=== PATIENT | female | born 1990 | race Caucasian/White ===

== ENCOUNTER → 2016-08-04 | Outpatient (CLI) | payer OTHER ==
[2016-08-04 17:17] LABS: ESTRADIOL < 19.0 PG/ML; PROGESTERONE 17.4 NG/ML
== END ==
LOC: M LRY 11:02
PROVIDERS: ATTEND Obstetrics & Gynecology Reproductive Endocrinology
DX: Z31.49 Encounter for other procreative investigation and testing (principal)

== ENCOUNTER → 2016-08-11 | Outpatient (CLI) | payer OTHER ==
[2016-08-11 12:24] LABS: HCG, SERUM QUANTITATIVE < 1.0 MIU/ML
[2016-08-11 12:27] LABS: PROGESTERONE 4.8 NG/ML
== END ==
LOC: M LRY 09:16
PROVIDERS: ATTEND Obstetrics & Gynecology Reproductive Endocrinology
DX: Z32.00 Encounter for pregnancy test, result unknown (principal)

== ENCOUNTER → 2016-08-17 | Outpatient (CLI) | payer OTHER ==
[~2016-08-17] MED LIST: ENDO100S; METF500T4; NOVA1000; PROG-34 XX
--- NOTE | 2016-08-17 14:53 | REP ---
Clinical: Infertility. Technique: Transvaginal pelvic ultrasound examination. Findings: Normal anteverted uterus measures 7.1 x 3.1 x 3.7 cm. Endometrial complex measures 2.6 mm thickness. No discrete uterine or endometrial abnormalities are appreciated. No pelvic fluid or adnexal mass lesion identified. Right ovary measures 5.0 x 2.9 x 3.8 cm with approximately 4 subcentimeter follicles. Left ovary measures 4.1 x 3.6 x 2.4 cm with approximately 11 subcentimeter follicles. Impression: Infertility study with bilateral sub centimeter follicles noted. Signed by Rocky Iverson MD 08/17/2016 02:44 P
== END | disposition home or self-care (01) ==
LOC: M LAB 14:11
PROVIDERS: ATTEND Obstetrics & Gynecology Reproductive Endocrinology
DX: N85.4 Malposition of uterus (principal); N88.8 Other specified noninflammatory disorders of cervix uteri

== ENCOUNTER → 2016-08-17 | Outpatient (CLI) | payer OTHER ==
[2016-08-17 12:42] LABS: HCG, SERUM QUANTITATIVE < 1.0 MIU/ML
[2016-08-17 12:52] LABS: LUTEINIZING HORMONE 4.6 mIU/mL; PROGESTERONE 0.5 NG/ML
[2016-08-17 12:53] LABS: ESTRADIOL 19.7 PG/ML; FOLLICLE STIMULATING HORMONE 7.3 mIU/mL
== END | disposition home or self-care (01) ==
LOC: M LRY 09:45
PROVIDERS: ATTEND Obstetrics & Gynecology Reproductive Endocrinology
DX: N85.4 Malposition of uterus (principal); N88.8 Other specified noninflammatory disorders of cervix uteri

== ENCOUNTER → 2016-08-24 | Outpatient (CLI) | payer OTHER ==
--- NOTE | 2016-08-24 09:49 | REP ---
TRANSVAGINAL PELVIC SONOGRAPHY: HISTORY: Infertility. FINDINGS: Transvaginal scanning is performed. Uterine dimensions are normal at 8.2 x 2.6 x 3.5 cm. Endometrial echo 0.4 cm in thickness. No free fluid is seen. No focal uterine mass is seen. The overall dimensions of the right ovary today are 4.3 x 3.0 x 3.1 cm. There are eight follicles in the right ovary measuring over a centimeter as follows: 1.1 x 0.9, 1.4 x 0.6, 1.0 x 0.3, 1.2 x 0.5, 1.1 x 0.8, 1.5 x 1.1, 1.1 x 0.7, and 1.2 x 0.9 cm. In addition there approximate 24 follicles ranging in size from 0.2-0.9 cm in the right ovary. The overall dimensions of the left ovary are 3.9 x 3.5 x 4.7 cm. There are 10 follicles in the right ovary measuring over a centimeter: 1.4 x 0.7, 1.2 x 0.6, 1.1 x 0.7, 1.1 x 0.7, 1.0 x 0.6, 1.1 x 0.4, 1.1 x 0.9, 1.0 x 0.6, 1.2 x 0.6, and 1.2 x 0.8 cm. In addition there are numerous, approximate 36, follicles in the left ovary ranging in size from 0.2-0.9 cm. There is a 1.5 x 1.2 x 0.8 cm septated follicle cyst in the left ovary as well. Signed by Warren Yanez MD 08/24/2016 10:09 A
[2016-08-24 12:19] LABS: ESTRADIOL 24.6 PG/ML; PROGESTERONE 0.7 NG/ML
== END ==
LOC: M RAD 07:35
PROVIDERS: ATTEND Obstetrics & Gynecology Reproductive Endocrinology
DX: E28.2 Polycystic ovarian syndrome (principal)

== ENCOUNTER → 2016-08-26 | Outpatient (CLI) | payer OTHER ==
--- NOTE | 2016-08-26 08:49 | REP ---
Clinical: Infertility. Technique: Transvaginal ultrasound examination. Findings: Anteverted uterus measures 7.5 x 3.0 x 4.2 cm. The endometrial complex measures 6.4 mm thickness. No discrete abnormalities appreciated. No free fluid noted. Right ovary measures 4.8 x 3.4 x 4.0 cm with three follicles measuring between 10 and 11 mm along with greater than 20 sub centimeter follicles. Left ovary measures 4.9 x 2.8 x 3.6 cm with greater than 30 sub centimeter follicles. Impression: Predominately sub centimeter follicles noted bilaterally. Normal appearance to the uterus. No free fluid. Signed by Rocky Iverson MD 08/26/2016 08:41 A
== END ==
LOC: M RAD 06:44
PROVIDERS: ATTEND Obstetrics & Gynecology Reproductive Endocrinology
DX: E28.2 Polycystic ovarian syndrome (principal)

== ENCOUNTER → 2016-08-26 | Outpatient (CLI) | payer OTHER ==
[2016-08-26 11:53] LABS: PROGESTERONE 0.4 NG/ML
[2016-08-26 11:54] LABS: ESTRADIOL 50.6 PG/ML; LUTEINIZING HORMONE 8.3 mIU/mL
== END ==
LOC: M LAB 06:59
PROVIDERS: ATTEND Obstetrics & Gynecology Reproductive Endocrinology
DX: E28.2 Polycystic ovarian syndrome (principal)

== ENCOUNTER → 2016-08-29 | Outpatient (CLI) | payer OTHER ==
--- NOTE | 2016-08-29 08:51 | REP ---
TRANSVAGINAL PELVIC ULTRASOUND, FOLLICLE STUDY: Real-time sonographic evaluation of the pelvis performed utilizing transvaginal probe. The uterus measures 7.4 x 2.7 x 4.2 cm. Endometrial thickness is 4 mm. Right ovary measures 4.6 x 3.2 x 2.8 cm. There are two dominant follicles measuring 12 x 7 and 13 x 9 mm. Approximately 20 other follicles range in size between 2 and 9 mm. Left ovary measures 4.6 x 3.6 x 3.2 cm. Two dominant follicles are seen measuring 12 x 7 and 11 x 9 mm. Approximately 30 other subcentimeter follicles are seen ranging between 2 and 9 mm in diameter. Signed by Stevan Belcher MD 08/29/2016 05:06 P
[2016-08-29 10:06] LABS: LUTEINIZING HORMONE 12.2 mIU/mL; PROGESTERONE 0.4 NG/ML
[2016-08-29 10:07] LABS: ESTRADIOL 56.1 PG/ML
== END ==
LOC: M RAD 07:05
PROVIDERS: ATTEND Obstetrics & Gynecology Reproductive Endocrinology
DX: E28.2 Polycystic ovarian syndrome (principal)

== ENCOUNTER → 2016-09-05 | Outpatient (CLI) | payer OTHER ==
--- NOTE | 2016-09-05 09:03 | REP ---
Transvaginal pelvic ultrasound for follicle analysis: Right ovary: There is one follicle greater than 10 mm measuring up to 13.6 mm. In addition there are approximately 35 follicles in the 2.2 - 9.3 mm range. Right ovary is upper normal size measuring 4.8 x 3.1 x 3.3 cm. Left ovary : There is one follicle greater than 10 mm measuring up to 12.5 mm. Additionally, there are 30 follicles in the 2.6 - 9.8 mm range. Left ovary is normal size measuring 4.8 x 3.7 x 3.6 cm. The uterus is anteverted and normal size measuring 7.5 x 2.7 x 4.6 cm. The endometrium is not thickened measuring 5.5 mm. Endometrium has a trilaminar appearance. Signed by Stevan Terrazas MD 09/05/2016 08:54 A
[2016-09-05 10:21] LABS: LUTEINIZING HORMONE 11.6 mIU/mL; PROGESTERONE 0.5 NG/ML
[2016-09-05 10:22] LABS: ESTRADIOL 35.9 PG/ML
== END ==
LOC: M RAD 08:01
PROVIDERS: ATTEND Obstetrics & Gynecology Reproductive Endocrinology
DX: E28.2 Polycystic ovarian syndrome (principal); N85.4 Malposition of uterus

== ENCOUNTER → 2016-09-08 | Outpatient (CLI) | payer OTHER ==
--- NOTE | 2016-09-08 07:52 | REP ---
Pelvic sonography: Transvaginal study. History: Infertility. Findings: Uterine dimensions are normal at 7.2 x 2.7 x 4.4 cm. Endometrial stripe is 0.7 centimeters in thickness. No focal uterine mass is seen. No free fluid is noted. The right ovary measures 3.7 x 3.6 x 3.6 cm. It contains two follicles over a centimeter measuring 1.5 x 1.8 and 1.0 x 0.8 cm. In addition, the right ovary contains 16 follicles ranging in size and 0.4-0.9 cm. The left ovary measures 4.9 x 3.9 x 3.0 cm. It contains three follicles over a centimeter measured as follows: 1.2 x 0.9, 2.1 x 1.7, and 1.2 x 0.9 cm. In addition there are 20 follicles under a centimeter in the left ovary. Impression: Ovarian follicle study as above. Signed by Warren Yanez MD 09/08/2016 07:44 A
[2016-09-08 09:47] LABS: LUTEINIZING HORMONE 50.1 mIU/mL; PROGESTERONE 0.9 NG/ML
[2016-09-08 09:48] LABS: ESTRADIOL 70.5 PG/ML
== END ==
LOC: M RAD 07:02
PROVIDERS: ATTEND Obstetrics & Gynecology Reproductive Endocrinology
DX: N97.9 Female infertility, unspecified (principal)

== ENCOUNTER → 2016-09-16 | Outpatient (CLI) | payer OTHER ==
[2016-09-16 10:28] LABS: ESTRADIOL 53.5 PG/ML; PROGESTERONE 32.3 NG/ML
== END ==
LOC: M LRY 08:14
PROVIDERS: ATTEND Obstetrics & Gynecology Reproductive Endocrinology
DX: Z31.49 Encounter for other procreative investigation and testing (principal)

== ENCOUNTER → 2016-09-26 | Outpatient (REF) | payer OTHER ==
[2016-09-26 15:20] LABS: HCG, SERUM QUANTITATIVE < 1.0 MIU/ML
[2016-09-26 15:25] LABS: PROGESTERONE 0.7 NG/ML
== END ==
LOC: M LRY 14:39
PROVIDERS: ATTEND Obstetrics & Gynecology Reproductive Endocrinology
DX: Z32.00 Encounter for pregnancy test, result unknown (principal)

== ENCOUNTER → 2016-09-30 | Outpatient (CLI) | payer OTHER ==
[2016-09-30 10:35] LABS: HCG, SERUM QUANTITATIVE < 1.0 MIU/ML
[2016-09-30 10:37] LABS: LUTEINIZING HORMONE 7.6 mIU/mL; PROGESTERONE 0.4 NG/ML
[2016-09-30 10:38] LABS: ESTRADIOL 27.1 PG/ML
[2016-09-30 10:39] LABS: FOLLICLE STIMULATING HORMONE 9.5 mIU/mL
--- NOTE | 2016-09-30 10:51 | REP ---
TRANSVAGINAL PELVIC ULTRASOUND, FOLLICLE STUDY: Transvaginal pelvic ultrasound performed. Uterus measures 7.7 x 3.3 x 4.3 cm. Endometrial stripe measures 4 mm. There is no endometrial fluid collection or free fluid. Right ovary measures 4.7 x 3.4 x 3.0 cm. There is a dominant follicle in the right ovary 11 x 9 mm with multiple other subcentimeter follicles present. Left ovary measures 3.7 x 3.3 x 3.5 cm. There are approximately 7 dominant follicles present, the largest measuring 11 x 3 and 10 x 9 mm. Multiple other subcentimeter follicles are seen in the left ovary. Signed by Stevan Belcher MD 09/30/2016 05:07 P
== END ==
LOC: M LAB 09:01 → M RAD 09:01
PROVIDERS: ATTEND Obstetrics & Gynecology Reproductive Endocrinology
DX: E28.9 Ovarian dysfunction, unspecified (principal)

== ENCOUNTER → 2016-10-07 | Outpatient (CLI) | payer OTHER ==
--- NOTE | 2016-10-07 09:30 | REP ---
Pelvic ultrasound for follicle analysis: Studies performed with endovaginal imaging. Right ovary: Right ovary is normal size measuring 4.2 x 3.6 x 3.4 cm. There are four follicles greater than 10 mm, the largest measuring up to 12 ml. In addition there are approximately 40 follicles measuring 2 - 9 mm. Left ovary: Left ovary is normal size measuring 3.9 x 3.2 x 3.17 inches. There are four follicles greater than 10 mm, the largest measuring up to 12 mm. Additionally, there are 48 follicles measuring 3 - 9 mm. In addition, there is a dominant cyst measuring 2.5 centimeters with a daughter cyst, versus two adjacent cysts. The uterus is anteverted and normal size measuring 7.2 x 2.4 x 4.0 cm. The endometrium inch 3.8 mm thickness. There is no free fluid in the pelvis. Signed by Stevan Terrazas MD 10/07/2016 09:22 A
[2016-10-07 11:42] LABS: PROGESTERONE 0.4 NG/ML
[2016-10-07 11:43] LABS: ESTRADIOL 73.4 PG/ML; LUTEINIZING HORMONE 9.3 mIU/mL
== END ==
LOC: M RAD 08:35 → M LAB 08:35
PROVIDERS: ATTEND Obstetrics & Gynecology Reproductive Endocrinology
DX: E28.2 Polycystic ovarian syndrome (principal); N85.4 Malposition of uterus

== ENCOUNTER → 2016-10-10 | Outpatient (CLI) | payer OTHER ==
--- NOTE | 2016-10-10 10:29 | REP ---
PELVIC SONOGRAPHY: HISTORY: Fertility study. FINDINGS: Transvaginal pelvic sonography is performed. Uterine dimensions today are 8.0 x 2.8 x 4.2 cm. Endometrial echoes measure 0.8 cm. There is trace of fluid in the cul-de-sac. No focal uterine mass is seen. Overall dimensions of the right ovary today are 4.5 x 3.9 x 3.4 cm. There is a 1.2 x 0.6 cm follicle in the right ovary and innumerable follicles are seen in the right ovary ranging in size from 0.2-0.9 cm. Overall dimensions of the left ovary today are 4.2 x 4.1 x 3.9 cm. There are four follicles in the left ovary measuring over a centimeter as follows: 1.0 x 0.8, 1.0 x 0.6, 1.0 x 0.3, and 1.4 x 0.2 cm. In addition there are innumerable follicles in the left ovary ranging in size from 0.2-0.9 cm. There is also a left ovarian cyst measuring 3.2 x 2.8 x 3.0 cm. IMPRESSION: Follicle study as above. 3.3 cm cyst seen left ovary in addition to follicles. Signed by Warren Yanez MD 10/10/2016 10:57 A
[2016-10-10 10:46] LABS: ESTRADIOL 75.8 PG/ML; LUTEINIZING HORMONE 49.1 mIU/mL; PROGESTERONE 2.1 NG/ML
== END ==
LOC: M LAB 08:54
PROVIDERS: ATTEND Obstetrics & Gynecology Reproductive Endocrinology
DX: E28.2 Polycystic ovarian syndrome (principal)

== ENCOUNTER 2016-10-23 00:23 | Emergency (ER) | payer OTHER ==
[~2016-10-23] VITALS: Ht 177.8 cm; Wt 127.3 kg
[2016-10-23] MEDS ORDERED: ENDO100S (00:41)
[2016-10-23] MEDS ORDERED: NOVA1000 (00:41)
[2016-10-23] MEDS ORDERED: METF500T4 (00:41)
[2016-10-23] MEDS ORDERED: PROG-34 XX (00:41)
[2016-10-23] MEDS ORDERED: KETOROLAC 60 MG/2 ML VIAL (J1885) IM ONE (01:00)
[2016-10-23 01:42] VITALS: BP 129/66
--- NOTE | 2016-10-23 02:00 | REPUSA ---
Indication: Right-sided neck swelling. Technique: Real-time ultrasound images. Findings: 3.1x2.7x2.6 cm complex fluid collection in the right aspect of the neck posterior to the thyroid lela carey Impression: Complex heterogeneous fluid collection in the right aspect of the neck posterior/deep to the thyroid.
[2016-10-23] MEDS ORDERED: ONDANSETRON 4 MG ORAL DISINTEGRATING TAB (S0181) PO ONE (02:30)
[2016-10-23] MEDS ORDERED: NORCO, ANEXSIA 5/325MG TABLET (HYDROcodone/ACETAMINOPHEN) PO ONE (02:30)
[2016-10-23 02:51] LABS: IONIZED CALCIUM 4.7 MG/DL (4.5-5.3)
[2016-10-23 02:53] LABS: BASO # 0.1 K/mm3 (0.0-0.2); BASO % 0.9 % (0.0-1.0); EOS # 0.3 K/mm3 (0.0-0.50); EOS % 2.7 % (0.0-3.0); LARGE UNSTAINED CELL # 0.1 K/mm3 (0.0-0.4); LYMPH # 3.3 K/mm3 (1.5-6.5); MEAN CORPUSCULAR HEMOGLOBIN 28.4 pg (27.0-33.0); MEAN CORPUSCULAR HGB CONC 33.5 g/dl (32.0-36.5); MEAN CORPUSCULAR VOLUME 84.9 fl (80.0-96.0); MONO # 0.6 K/mm3 (0.0-0.8); NEUTROPHILS # 7.8 K/mm3 (1.8-7.7); NEUTROPHILS % 64.4 % (36.0-66.0); PLATELET COUNT, AUTOMATED 336 k/mm3 (150-450); RED CELL DISTRIBUTION WIDTH 14.4 % (11.5-14.5); WHITE BLOOD COUNT 12.1 K/mm3 (4.0-10.0)
[2016-10-23] MEDS ORDERED: METAL LOCK LOOP XX ONE (02:55)
[2016-10-23 03:07] LABS: CONTROL LINE HCG INT CTR LINE PRESENT
[2016-10-23 03:23] LABS: ANION GAP 10 MEQ/L (8-16); BLOOD UREA NITROGEN 6 MG/DL (7-18); CALCIUM LEVEL 8.7 MG/DL (8.5-10.1); CARBON DIOXIDE LEVEL 23 MEQ/L (21-32); CHLORIDE LEVEL 110 MEQ/L (98-107); CREATININE FOR GFR 0.74 MG/DL (0.55-1.02); GLOMERULAR FILTRATION RATE > 60.0 (>60); GLUCOSE, FASTING 96 MG/DL (70-105); SODIUM LEVEL 143 MEQ/L (136-145); T UPTAKE 35 % (30-39); THYROXINE (T4) 11.9 UG/DL (4.5-12.0)
[2016-10-23] MEDS ORDERED: ISOVUE-370 76% 100ML VIAL (Q9967) As Ordered ONE (03:24)
--- NOTE | 2016-10-23 04:10 | REPUSA ---
CLINICAL HISTORY: Neck mass. TECHNIQUE: Multiple axial CT images were obtained through the neck with IV contrast material. MPR cor onal and sagittal sequences were obtained. COMMENTS: 3.1x2.7 cm cystic lesion adjacent to the lower pole of the right thyroid lobe. The cystic lesion is deep to the inferior port of the right thyroid lobe. Secondary mass effect on the adjacent aspect of the right thyroid lobe. No associated solid enhancement. Mild diffuse thyromegaly. The oropharyngeal soft tissues are normal and bilaterally symmetric. The piriform sinuses are normal. There is no supra or infraglottic laryngeal mass. The proximal trachea is normal. There is no paravertebral soft tissue mass. The salivary glands are normal. There is no deep cervical or jugular lymphadenopathy. The paravertebral soft tissue space is normal. Limited images through the posterior fossa demonstrate no evidence for tonsilar herniation. Evaluation of the visualized lung apices reveals no evidence for abnormality. There is no evidence for abnormal enhancement. IMPRESSION: Cystic lesion as described above. This may represent an eccentric/exophytic cystic nodule arising fro m the lower pole of the right thyroid lobe. Differential diagnosis includes a duplication cyst. No lymph node enlargement or solid enhancement. No secondary airway narrowing. Thank you for your kind referral of this patient.
--- NOTE | 2016-10-23 06:50 | ED PDOC ---
Post-Departure Follow-Up dr loera faxed formal report of thry us for fu Deisy Hensley MD Oct 23, 2016 06:50
--- NOTE | 2016-10-23 06:52 | ED PDOC ---
Post-Departure Follow-Up additionally ct neck also faxed to dr loera. Deisy Hensley MD Oct 23, 2016 06:52
--- NOTE | 2016-10-23 08:45 | REP ---
Clinical: Chest pain primarily at the thoracic inlet . Comparison: None . Technique: PA and lateral. Findings: The mediastinum and cardiac silhouette are normal. The lung clements are clear and without acute consolidation, effusion, or pneumothorax. The skeletal structures are intact and normal. Impression: 1. No acute cardiopulmonary process. Signed by Rocky Iverson MD 10/23/2016 08:36 A
== END 2016-10-23 06:07 | disposition home or self-care (01) ==
LOC: M ED 00:23
DX: E04.1 Nontoxic single thyroid nodule (principal); F31.9 Bipolar disorder, unspecified; F41.9 Anxiety disorder, unspecified; E28.2 Polycystic ovarian syndrome; F17.200 Nicotine dependence, unspecified, uncomplicated; Z79.899 Other long term (current) drug therapy; Z88.1 Allergy status to other antibiotic agents
CPT/HCPCS: 36415; 70491; 71020; 76536; 80048; 82330; 84436; 84443; 84479; 84703; 85025; 96372; 99283; J1885; Q9967

== ENCOUNTER → 2016-10-25 | Outpatient (CLI) | payer OTHER ==
[2016-10-25 21:01] LABS: HCG, SERUM QUANTITATIVE < 1.0 MIU/ML
[2016-10-25 21:07] LABS: PROGESTERONE 1.1 NG/ML
== END ==
LOC: M LRY 16:39
PROVIDERS: ATTEND Obstetrics & Gynecology Reproductive Endocrinology
DX: O09.00 Supervision of pregnancy with history of infertility, unspecified trimester (principal); Z36 Encounter for antenatal screening of mother; Z3A.00 Weeks of gestation of pregnancy not specified

== ENCOUNTER → 2016-10-26 | Outpatient (REF) | payer OTHER | LOC: M LAB REF 15:04 | PROVIDERS: ATTEND Otolaryngology | DX: E04.1 Nontoxic single thyroid nodule (principal) ==

== ENCOUNTER → 2017-11-19 | Outpatient (REF) | payer OTHER ==
[2017-11-19 21:09] LABS: CHLAMYDIA DNA AMPLIFICATION NEGATIVE (NEGATIVE); GC DNA AMPLIFICATION NEGATIVE (NEGATIVE)
== END ==
LOC: M SFHCLERA 15:55
DX: Z20.2 Contact with and (suspected) exposure to infections with a predominantly sexual mode of transmission (principal)

== ENCOUNTER → 2018-04-22 | Outpatient (CLI) | payer OTHER ==
[2018-04-22 19:28] LABS: BASO # 0.1 10^3/uL (0.0-0.2); EOS # 0.1 10^3/uL (0.0-0.50); EOS % 2.1 % (0.0-3.0); HEMATOCRIT 42.2 % (36.0-47.0); HEMOGLOBIN 13.7 g/dl (12.0-15.5); LYMPH % 34.2 % (24.0-44.0); MEAN CORPUSCULAR HEMOGLOBIN 30.4 pg (27.0-33.0); MEAN CORPUSCULAR HGB CONC 32.5 g/dl (32.0-36.5); MEAN CORPUSCULAR VOLUME 93.8 fl (80.0-96.0); MONO # 0.4 10^3/uL (0.0-0.8); MONO % 6.7 % (0.0-5.0); NEUTROPHILS # 3.2 10^3/uL (1.8-7.7); NEUTROPHILS % 55.8 % (36.0-66.0); PLATELET COUNT, AUTOMATED 286 10^3/uL (150-450); WHITE BLOOD COUNT 5.8 10^3/uL (4.0-10.0)
[2018-04-22 19:58] LABS: ALBUMIN 3.9 GM/DL (3.2-5.2); ALT/SGPT 22 U/L (12-78); BLOOD UREA NITROGEN 12 MG/DL (7-18); CALCIUM LEVEL 8.4 MG/DL (8.5-10.1); CARBON DIOXIDE LEVEL 26 MEQ/L (21-32); CHLORIDE LEVEL 107 MEQ/L (98-107); CHOLESTEROL LEVEL 236 MG/DL (<200); CHOLESTEROL RISK RATIO 3.323 (<5); CREATININE FOR GFR 0.71 MG/DL (0.55-1.30); GLOMERULAR FILTRATION RATE > 60.0 (>60); GLUCOSE, FASTING 82 MG/DL (70-100); HDL CHOLESTEROL 71 MG/DL (>40); LDL CHOLESTEROL 152 MG/DL (<100); NON-HDL-C 165 MG/DL; POTASSIUM SERUM 4.4 MEQ/L (3.5-5.1); SODIUM LEVEL 142 MEQ/L (136-145); TOTAL PROTEIN 6.5 GM/DL (6.4-8.2); TRIGLYCERIDES LEVEL 65 MG/DL (<150)
[2018-04-22 20:03] LABS: HEMOGLOBIN A1c 4.9 %
== END ==
LOC: M LRY 11:24
PROVIDERS: ATTEND Nurse Practitioner Psychiatric/Mental Health
DX: F31.81 Bipolar II disorder (principal); Z79.899 Other long term (current) drug therapy

== ENCOUNTER 2018-12-21 23:14 | Outpatient (CLI) | payer OTHER ==
[~2018-12-21] VITALS: Ht 177.8 cm; Wt 115.1 kg
[~2018-12-21 23:14] MED LIST changes: +METF-791; -METF500T4
[2018-12-21 23:34] VITALS: BP 131/72
--- NOTE | 2018-12-22 00:49 | REPVR ---
PROCEDURE INFORMATION: Exam: US , Transvaginal Exam date and time: 12/22/2018 12:20 AM Clinical history: 28 years old, female; Condition or disease; Lmp or gestational age (weeks): 25; Other: Incompetent cx; Other: Unk; ; Additional info: Shortened cervix, previously 1.6cm TECHNIQUE: Imaging protocol: Real-time transvaginal obstetrical ultrasound of the maternal pelvis and a first trimester with image documentation. Transvaginal imaging was used for better evaluation of the fetus and adnexa. COMPARISON: Transvaginal NON- US 10/10/2016 9:32 AM FINDINGS: MATERNAL: Cervix: The cervix measures 1.2 cm. IMPRESSION: Short cervix measuring 1.2 cm. Electronically signed by: Vasu Sol On 12/22/2018 00:48:34 AM
--- NOTE | 2018-12-22 01:30 | IPNPDOC ---
Text Note Date of Service The patient was seen on 12/22/18. NOTE Outpatient 28yo G1 CARLOS 04/20/19. Presents @ 22w6d with concerns for vaginal leakage and cramping. Hx significant for known shortened cervix, 1.6cm on 12/11/18. Currently using progesterone suppositories. Pt of WW[facility], transferring to [facility] with appt in 2 wks. Reassuring status No UC Spec exam, neg pool, neg valsalva, neg nitrazine, neg fern. Cervix with either membranes visible or mucous plug, approximately FT-1cm dilated visually TVUS 1.2cm in length Consulted Dr Gomez. Discharged home at this time. Rec pelvic rest. Call office Monday for appt this week rather than 2 wks. Pt and partner verbalize understanding. VS,Fishbone, I+O VS, Fishbone, I+O Vital Signs Date Time Temp Pulse Resp B/P (MAP) Pulse Ox O2 Delivery O2 Flow Rate FiO2 12/21/18 23:34 88 131/72 (91) 12/21/18 23:34 98.1 Vandana Deutsch CNM Dec 22, 2018 00:15
[2018-12-22] MEDS ORDERED: UNIS25TA3 PO (08:48)
[2018-12-22] MEDS ORDERED: IRON65TA2 PO (08:48)
[2018-12-22] MEDS ORDERED: ENDO100S PV (08:48)
[2018-12-22] MEDS ORDERED: PRENTAB9 PO (08:48)
== END 2018-12-22 01:40 | disposition home or self-care (01) ==
LOC: M LDO 23:14
PROVIDERS: ATTEND Advanced Practice Midwife
DX: O34.32 Maternal care for cervical incompetence, second trimester (principal); Z3A.25 25 weeks gestation of pregnancy
CPT/HCPCS: 76817; 87086; G0378; G0463

== ENCOUNTER 2018-12-22 11:49 | Day surgery (SDC) | payer OTHER ==
[~2018-12-22] VITALS: Ht 177.8 cm; Wt 115.2 kg
[2018-12-22 08:36] VITALS: BP 124/61
[2018-12-22 10:08] LABS: HEMATOCRIT 35.6 % (36.0-47.0); HEMOGLOBIN 11.8 g/dl (12.0-15.5); MEAN CORPUSCULAR HEMOGLOBIN 29.6 pg (27.0-33.0); MEAN CORPUSCULAR HGB CONC 33.1 g/dl (32.0-36.5); MEAN CORPUSCULAR VOLUME 89.4 fl (80.0-96.0); PLATELET COUNT, AUTOMATED 272 10^3/uL (150-450); RED BLOOD COUNT 3.98 10^6/uL (4.00-5.40); WHITE BLOOD COUNT 11.3 10^3/uL (4.0-10.0)
[2018-12-22 10:47] VITALS: BP 124/72
--- NOTE | 2018-12-22 11:45 | HPE ---
DATE OF ADMISSION: 12/22/2018 HISTORY: 28-year-old G1, P0 female at 23 and 0/7 weeks of gestation by last menstrual period (LMP) consistent with 8-week ultrasound and estimated date of confinement (EDC) 04/20/2019. Presents to the hospital after previous transvaginal ultrasound revealed progressive cervical shortening. The patient had been experiencing some mild diarrhea the night before when she had an ultrasound ordered. Her cervical length decreased from 1.6 cm on 12/11/2018 to 1.2 cm on 12/21/2018. The patient had been started on vaginal progesterone by her providers at [facility]. The patient denies bleeding or abdominal pain. PAST MEDICAL HISTORY: 1. Bipolar disorder. 2. Polycystic ovarian disease. PAST SURGICAL HISTORY: 1. Right ankle surgery times seven from 2009 to 2015. 2. Gastric sleeve procedure June 2017. 3. Convoy tooth extraction 2008. 4. Cholecystectomy May 2018. SOCIAL HISTORY: Patient is . Current father of the baby is involved. The patient denies cigarettes, alcohol, or drug use. FAMILY HISTORY: Noncontributory. PHYSICAL EXAMINATION: Blood pressure 124/74, weight 225, afebrile in no apparent distress. Head and neck exam normal. Lungs clear. Heart regular rate and rhythm. Abdomen: Nontender. Gravid. heart tones category 1. Sterile speculum exam: Cervix appears shortened. Cervix is fingertip dilated, extremely short, soft. Membranes palpable. Membranes cannot be visualized coming through the cervix. Ultrasound reveals 1.2 cm cervix with funneling to the level of the internal os. ASSESSMENT: 28-year-old G1 at 23-0/7 weeks of gestation by LMP consistent with 8-weeks ultrasound presents with diagnosis of cervical incompetence in her first . Plan is to perform cervical cerclage today due to diagnosis of cervical incompetence. It is ideal to do these when the cervix is a little bit longer, however, there is still cervical length present. The risk of cerclage was discussed earlier with the patient and her partner. Risk of not performing cerclage was also discussed. Consents have been signed and we will proceed shortly to the operating room. KAVON
[~2018-12-22 11:49] MED LIST changes: +CHLOROPROCAINE PRES. FREE 3% INJ 20 ML VIAL (J2400) As Ordered ONE; +ENDO100S PV; +IRON65TA2 PO; +LIDOCAINE 2% INJ 100 MG/5 ML SDV (FOR ANES.) As Ordered ONE; +LR 1,000 ML IV SCH; +MIDAZOLAM INJ 2 MG/2 ML VIAL (J2250) As Ordered ONE; +ONDANSETRON 4MG/2ML VIAL (J2405) As Ordered ONE; +PHENYLephrine HCL 500 MCG/5 ML (100MCG/ML) SYRINGE (J2370) As Ordered ONE; +PRENTAB9 PO; +PROPOFOL 200 MG/20 ML VIAL As Ordered ONE; +UNIS25TA3 PO; +dexameTHASONE 4 MG/ML 1ML VIAL (J1100) As Ordered ONE; +fentaNYL 100 MCG/2 ML INJECTION (J3010) As Ordered ONE
[2018-12-22] MEDS ORDERED: PROPOFOL 200 MG/20 ML VIAL As Ordered ONE (11:54)
[2018-12-22] MEDS ORDERED: HYDROMORPHONE HCL 0.5 MG/ 0.5 ML SYRINGE (J1170 PER 1) IV PRN (12:30)
[2018-12-22] MEDS ORDERED: PERCOCET 5MG/325MG TAB PO PRN (12:30)
[2018-12-22] MEDS ORDERED: LR 1,000 ML IV SCH ×2 (12:30→14:00)
[2018-12-22] MEDS ORDERED: ONDANSETRON 4MG/2ML VIAL (J2405) IV PRN (12:30)
[2018-12-22] MEDS ORDERED: fentaNYL 100 MCG/2 ML INJECTION (J3010) IV PRN (12:30)
[2018-12-22 13:18] VITALS: BP 127/67
[2018-12-22 13:40] VITALS: BP 121/72
[2018-12-22 14:18] VITALS: BP 110/54
--- NOTE | 2018-12-24 13:53 | RO ---
DATE OF PROCEDURE: 12/22/2018 PREPROCEDURE DIAGNOSIS: 23 week cervical incompetence. POSTPROCEDURE DIAGNOSIS: 23 week cervical incompetence. PROCEDURE: Amos cervical cerclage. SURGEON: Dr. Chapo Gomez PICTURE COPYIST: Dr. Khari Dee ANESTHESIA: Spinal. ESTIMATED BLOOD LOSS: 5 mL. URINE OUTPUT: 100 mL. FINDINGS: Grossly normal cervix, finger tip dilated with membranes palpable. Cervix extremely short and thin. OPERATIVE SUMMARY: The patient was taken to the operating room where spinal anesthesia was induced. She was prepped and draped in sterile fashion in the dorsal lithotomy position. The bladder was emptied with the catheter. A Breisky retractor was used to expose the cervix. The anterior lip of the cervix was grasped with a ring forceps. A #0 Ethibond suture was placed anteriorly at the 12 o'clock position. Several bites were taken in a pursestring fashion in a counter clockwise direction around the cervix. The needle exited at the 12 o'clock position adjacent to the initial stitch. The suture was then tied into place under moderate tension. Strings were left long for identification purposes. Sponge, instrument and needle counts were correct. Dr. Khari Dee assisted with the procedure as it was an urgent procedure where his presence was necessary for adequate exposure.
== END 2018-12-22 16:30 | disposition home or self-care (01) ==
LOC: M SDC 11:49 → M LDI 14:12 → M SDC 16:30
PROVIDERS: ATTEND Specialist
DX: O34.32 Maternal care for cervical incompetence, second trimester (principal); O99.342 Other mental disorders complicating pregnancy, second trimester; F31.9 Bipolar disorder, unspecified; O34.82 Maternal care for other abnormalities of pelvic organs, second trimester; E28.2 Polycystic ovarian syndrome; O99.842 Bariatric surgery status complicating pregnancy, second trimester; Z87.891 Personal history of nicotine dependence; Z88.5 Allergy status to narcotic agent; Z88.1 Allergy status to other antibiotic agents; Z3A.23 23 weeks gestation of pregnancy; Z79.899 Other long term (current) drug therapy
CPT/HCPCS: 59320; 85027; 86850; 86900; 86901; J2250; J2370; J2400; J2405; J3010

== ENCOUNTER → 2018-12-25 | Outpatient (CLI) | payer OTHER ==
[~2018-12-25] MED LIST changes: -CHLOROPROCAINE PRES. FREE 3% INJ 20 ML VIAL (J2400) As Ordered ONE; -LIDOCAINE 2% INJ 100 MG/5 ML SDV (FOR ANES.) As Ordered ONE; -LR 1,000 ML IV SCH; -MIDAZOLAM INJ 2 MG/2 ML VIAL (J2250) As Ordered ONE; -ONDANSETRON 4MG/2ML VIAL (J2405) As Ordered ONE; -PHENYLephrine HCL 500 MCG/5 ML (100MCG/ML) SYRINGE (J2370) As Ordered ONE; -PROPOFOL 200 MG/20 ML VIAL As Ordered ONE; -dexameTHASONE 4 MG/ML 1ML VIAL (J1100) As Ordered ONE; -fentaNYL 100 MCG/2 ML INJECTION (J3010) As Ordered ONE
[2018-12-25 14:15] LABS: BASO % 0.3 % (0.0-1.0); EOS # 0.3 10^3/uL (0.0-0.5); EOS % 2.3 % (0.0-3.0); HEMATOCRIT 37.7 % (36.0-47.0); LYMPH # 2.5 10^3/uL (1.5-5.0); LYMPH % 23.1 % (24.0-44.0); MEAN CORPUSCULAR HEMOGLOBIN 29.2 pg (27.0-33.0); MEAN CORPUSCULAR HGB CONC 31.8 g/dl (32.0-36.5); MEAN CORPUSCULAR VOLUME 91.7 fl (80.0-96.0); MONO # 0.7 10^3/uL (0.0-0.8); MONO % 6.4 % (0.0-5.0); NEUTROPHILS # 7.2 10^3/uL (1.5-8.5); NEUTROPHILS % 66.2 % (36.0-66.0); PLATELET COUNT, AUTOMATED 296 10^3/uL (150-450); RED BLOOD COUNT 4.11 10^6/uL (4.00-5.40); WHITE BLOOD COUNT 10.8 10^3/uL (4.0-10.0)
[2018-12-25 14:29] LABS: ALT/SGPT 15 U/L (12-78); BILIRUBIN,TOTAL 0.3 MG/DL (0.2-1.0); BLOOD UREA NITROGEN 5 MG/DL (7-18); CALCIUM LEVEL 8.9 MG/DL (8.5-10.1); CARBON DIOXIDE LEVEL 23 MEQ/L (21-32); CHLORIDE LEVEL 107 MEQ/L (98-107); CREATININE FOR GFR 0.62 MG/DL (0.55-1.30); FOLATE > 24.0 NG/ML; GLOMERULAR FILTRATION RATE > 60.0 (>60); GLUCOSE, FASTING 128 MG/DL (70-100); IRON (FE) 69 UG/DL (50-170); PERCENT SATURATION 15.8 % (13.2-45.0); POTASSIUM SERUM 3.8 MEQ/L (3.5-5.1); SODIUM LEVEL 139 MEQ/L (136-145); TOTAL IRON BINDING CAPACITY 437 UG/DL (250-450); TOTAL PROTEIN 6.1 GM/DL (6.4-8.2); VITAMIN B12 LEVEL 252 PG/ML
[2018-12-25 14:50] LABS: HEMOGLOBIN A1c 5.2 %
== END ==
LOC: M SMT 10:13
PROVIDERS: ATTEND Specialist
DX: O26.872 Cervical shortening, second trimester (principal); Z3A.00 Weeks of gestation of pregnancy not specified

== ENCOUNTER → 2019-01-15 | Outpatient (CLI) | payer OTHER | LOC: M PLALAB 14:40 | PROVIDERS: ATTEND Obstetrics & Gynecology | DX: O99.842 Bariatric surgery status complicating pregnancy, second trimester (principal); Z3A.00 Weeks of gestation of pregnancy not specified ==

== ENCOUNTER → 2019-02-11 | Outpatient (CLI) | payer OTHER ==
--- NOTE | 2019-02-11 15:56 | REP ---
Clinical: Growth evaluation Comparison: None available . Findings: Examination demonstrates a single live intrauterine in cephalic presentation. motion is identified by technologist. Placenta is noted posterior and grade zero without evidence for placenta previa or abruption. Amniotic fluid volume is normal. Cervix measures 16 mm with cerclage in place. No evidence for nuchal cord. Gestational age by LMP 30 weeks 2 days with CARLOS 04/20/2019 . Gestational age by current measurements 31 weeks 0 days with CARLOS 04/15/2019 . FHR equals 139 beats per minute. BPD 8.0 cm 32 weeks 1 day HC 29.4 cm 32 weeks 3 days AC 26.6 cm 30 weeks 5 days FL 5.8 cm 30 weeks 3 days HC/AC ratio 1.11 Estimated weight 1660 grams ( 55th percentile). Amniotic fluid index: 12.3 cm (8.9 - 23.5) Umbilical cord SD ratio: 2.48 Impression: 1. Single live intrauterine in cephalic presentation demonstrating satisfactory estimated weight to age by LMP. 2. Cervix measures 16 mm on Valsalva. Cerclage in place. Electronically Signed by Rocky Iverson MD 02/11/2019 03:47 P
== END ==
LOC: M LRY 13:40
PROVIDERS: ATTEND Advanced Practice Midwife
DX: Z34.83 Encounter for supervision of other normal pregnancy, third trimester (principal); Z3A.31 31 weeks gestation of pregnancy; K90.9 Intestinal malabsorption, unspecified

== ENCOUNTER 2019-02-27 18:58 | Outpatient (CLI) | payer OTHER ==
[~2019-02-27] VITALS: Ht 175.3 cm; Wt 126.7 kg
[2019-02-27 19:11] VITALS: BP 106/75
[2019-02-27] MEDS ORDERED: VALT500T PO (19:21)
[2019-02-27] MEDS ORDERED: TERCONAZOLE-7 VAGINAL CREAM PV SCH (21:00)
--- NOTE | 2019-02-27 21:05 | IPN ---
DATE: 02/27/2019 Irina is 28-year-old 1, para 0, 32-4/7 weeks, estimated date of delivery (EDC) 04/20/2019 based on first trimester ultrasound. She presents to labor and delivery today with a complaint of just generalized discomfort, low back pain and some burning sensation in her lower abdomen. She denies any painful contractions, vaginal bleeding and leakage of fluid. The fetus has been active. Her care was initiated at [facility] in the first trimester. course complicated by Amos cerclage placed in the second trimester with a plan of removal at 36 weeks, history of bariatric surgery. OBJECTIVE Temperature 97.6, pulse 114, BP is 106/75. heart rate is 150 with moderate variability, positive accelerations, no decelerations. There is one isolated contraction in the amount of time that she has been here. Sterile speculum exam noted to have thick curd-like discharge adhered to the biggs of her vagina. The wet prep is negative clue cells, negative, whiff with pH of 5, JENNIFER is positive for yeast and pseudohyphae.Cervix is visually L/T/C, cerclage suture visable. no bleeding in vaginal vault. ASSESSMENT Intrauterine 32-4/7 weeks, heart rate category one, candidiasis, cerclage intact. No bleeding. PLAN Terazol one applicator full per vagina at bedtime times 7 days. Discharge to home. I did review the signs and symptoms of labor, kick counts and danger signs to report. I did review access to care. The patient has had all her questions answered and desires to be discharged. KAVON
== END 2019-02-27 20:45 | disposition home or self-care (01) ==
LOC: M LDO 18:58
PROVIDERS: ATTEND Advanced Practice Midwife
DX: O23.593 Infection of other part of genital tract in pregnancy, third trimester (principal); Z3A.32 32 weeks gestation of pregnancy; B37.9 Candidiasis, unspecified; O99.843 Bariatric surgery status complicating pregnancy, third trimester; Z88.1 Allergy status to other antibiotic agents; Z88.5 Allergy status to narcotic agent; Z79.899 Other long term (current) drug therapy
CPT/HCPCS: 59025; G0378; G0463

== ENCOUNTER → 2019-03-19 | Outpatient (REF) | payer OTHER ==
[~2019-03-19] MED LIST changes: +VALT500T PO
== END ==
LOC: M SFHCWAGY 17:07
PROVIDERS: ATTEND Specialist
DX: Z36.85 Encounter for antenatal screening for Streptococcus B (principal)

== ENCOUNTER 2019-03-24 23:51 | Inpatient (IN) | payer OTHER ==
[~2019-03-24] VITALS: Ht 175.3 cm; Wt 138.3 kg
[2019-03-25] VITALS (28 sets, daily range): BP systolic 118–150; BP diastolic 58–93
[2019-03-25 01:30] LABS: HEMATOCRIT 36.4 % (36.0-47.0); HEMOGLOBIN 11.6 g/dl (12.0-15.5); MEAN CORPUSCULAR HEMOGLOBIN 27.5 pg (27.0-33.0); MEAN CORPUSCULAR HGB CONC 31.9 g/dl (32.0-36.5); MEAN CORPUSCULAR VOLUME 86.3 fl (80.0-96.0); PLATELET COUNT, AUTOMATED 231 10^3/uL (150-450); RED BLOOD COUNT 4.22 10^6/uL (4.00-5.40); WHITE BLOOD COUNT 9.1 10^3/uL (4.0-10.0)
--- NOTE | 2019-03-25 07:32 | HPE ---
DATE OF ADMISSION: 03/25/2019 HISTORY: 28-year-old G1, P0 female at 36 2/7 weeks gestation by last menstrual period (LMP) consistent with 8-week ultrasound with estimated date of confinement 04/20/2019 presents with leakage of fluid per vaginal starting at 9:45 p.m. on the evening before admission. She continue to leak and saturate pads. She started cramping, which became more noticeable. She denied bleeding. There was good movement. Patient has a history of cervical cerclage placed at 23 weeks gestation with the diagnosis of cervical incompetence. ANTEPARTUM CARE: Patient initiated care at [facility]. She was noted to have a shortened cervix of 1.2 cm on early ultrasound 2nd trimester. On subsequent ultrasound, showed further shortening of the cervix along with funneling. The decision was made to place a cerclage on an emergent basis. Cerclage was placed on 01/09/2019 without complication. PAST MEDICAL HISTORY: 1. Depression, bipolar disorder. 2. Polycystic ovarian syndrome (PCOS). 3. Herpes simplex virus (HSV). 4. Insomnia. PAST SURGICAL HISTORY: 1. June 2015, gastric sleeve procedure. 2. 2009 wisdom teeth. 3. 2018 cholecystectomy. 4. Leg surgery. 5. Seven ankle surgeries between 2009 and 2015. ALLERGIES: 1. DOXYCYCLINE. 2. CODEINE. SOCIAL HISTORY: Patient is . She denies cigarettes, alcohol or drug use. Her partner is in the . FAMILY HISTORY: Noncontributory. PHYSICAL EXAMINATION: Blood pressure 124/74, pulse 84. No apparent distress. Head and neck exam is normal. Lungs clear. Heart regular rate and rhythm. Abdomen nontender, gravid. heart tones category 1, contractions irregular, mild. Sterile speculum exam: Grossly ruptured clear fluid. Positive Nitrazine. Upon removal of cerclage, cervix is 2 cm, 80% effaced, -2 station vertex. Extremities nontender. LABS: Group B strep negative. Hemoglobin A1c 5.0%, blood type AB positive. ASSESSMENT: 28-year-old G1, P0 female at 36 and 2/7 weeks gestation presents with premature rupture of membranes. is significant for cervical incompetence with Amos cervical cerclage placement. PLAN: Patient is admitted on 03/25/2019. Cerclage is removed at the bedside without difficulty. Plan to move towards delivery at this time.
[2019-03-25] MEDS ORDERED: BUTORPHANOL 2 MG/ML INJ (J0595) As Ordered ONE (09:12)
[2019-03-25] MEDS ORDERED: PROMETHAZINE INJ 25 MG/ML VIAL (J2550) As Ordered ONE (09:13)
[2019-03-25] MEDS ORDERED: PROMETHAZINE INJ 25 MG/ML VIAL (J2550) IV ONE ×2 (09:15→15:15)
[2019-03-25] MEDS ORDERED: BUTORPHANOL 2 MG/ML INJ (J0595) IV ONE ×3 (09:15→15:15)
--- NOTE | 2019-03-25 14:12 | IPNPDOC ---
Obstetrical Progress Note Date of Service Mar 25, 2019 Subjective Patient reports her contractions have gotten stronger. Objective Vital Signs Date Time Temp Pulse Resp B/P (MAP) Pulse Ox O2 Delivery O2 Flow Rate FiO2 03/25/19 12:18 77 130/63 (85) 03/25/19 11:41 18 03/25/19 09:24 Room Air 03/25/19 07:09 97.7 97.7 Assessment Heart Rate (FHR): 125 Variability: Moderate Accelerations: Positive Decelerations: None Heart Rate Tracing: Category I Tocometer Contractions: Yes Frequency: regular, other (2 to 6 minutes) Strength: palpated as mild Sterile Vaginal Examination Dilation: 4 cm Effacement (%): 90% Station: -1 Cervical Consistency: Soft Cervical Position: Anterior Postion/Presentation: Cephalic presentation Assessment and Plan Age: 28 : 1 Term: 0 Pre-term: 0 Abortions: 0 Livin EGA at Admission: 36.2 Status: Reassuring Group B Streptococcus: Negative Anticipate: Vaginal Delivery Additional Comments Patient received a second dose of IV pain medication. REBECCA HOBSON CNM Mar 25, 2019 14:12
[2019-03-25 14:26] LABS: ALT/SGPT 8 U/L (12-78); BILIRUBIN,TOTAL 0.3 MG/DL (0.2-1.0); CREATININE FOR GFR 0.49 MG/DL (0.55-1.30); GLOMERULAR FILTRATION RATE > 60.0 (>60); LDH LACTATE DEHYDROGENASE 156 U/L (84-246)
--- NOTE | 2019-03-25 15:07 | IPNPDOC ---
Obstetrical Progress Note Date of Service Mar 25, 2019 Subjective Patient reports her contractions are more painful and desires another dose of stadol and phenergan. she desires to use the tub before she gets another dose. Objective Vital Signs Date Time Temp Pulse Resp B/P (MAP) Pulse Ox O2 Delivery O2 Flow Rate FiO2 03/25/19 12:18 77 130/63 (85) 03/25/19 11:41 18 03/25/19 09:24 Room Air 03/25/19 07:09 97.7 97.7 Sterile Vaginal Examination Dilation: 5 cm (5 to 6 cm) Effacement (%): 90% Station: -1 Cervical Consistency: Soft Cervical Position: Anterior Postion/Presentation: Cephalic presentation Assessment and Plan Age: 28 Status: Reassuring Group B Streptococcus: Negative Anticipate: Vaginal Delivery Additional Comments Stadol and phenergan ordered. REBECCA HOBSON CNM Mar 25, 2019 15:07
[2019-03-25] MEDS ORDERED: FENTANYL 2MCG/ML ROPIVACAINE 0.2% IN 0.9% NACL 100ML IVBAG As Ordered ONE (16:50)
[2019-03-25] MEDS ORDERED: ePHEDrine SULFATE 25 MG/5 ML(5MG/ML) SYRINGE IV PRN (18:00)
[2019-03-25] MEDS ORDERED: ONDANSETRON 4MG/2ML VIAL (J2405) IV PRN (18:00)
[2019-03-25] MEDS ORDERED: LACTATED RINGER'S 1000 ML IV PRN (18:00)
[2019-03-25] MEDS ORDERED: diphenhydrAMINE INJ 50MG/ML VIAL (J1200) IV PRN (18:00)
[2019-03-25] MEDS ORDERED: REFRIGERATOR IV KEYS XX PRN (18:00)
[2019-03-25] MEDS ORDERED: FENTANYL/ROPIVACAINE/NACL BAG 100 ML EPIDURAL SCH (18:00)
[2019-03-25] MEDS ORDERED: NALOXONE INJ 0.4 MG/1 ML VIAL (J2310) IV PRN (18:00)
[2019-03-25] MEDS ORDERED: EPIDURAL/PCA KEYS XX PRN (18:00)
[2019-03-25] MEDS ORDERED: EPIDURAL COMMENT XX SCH (18:00)
[2019-03-25] MEDS ORDERED: OXYTOCIN 30 UNITS IN 0.9% NaCl 500ML IV BAG (J2590) As Ordered ONE (19:16)
--- NOTE | 2019-03-25 20:58 | IPNPDOC ---
Obstetrical Progress Note Date of Service Mar 25, 2019 Subjective Patient reports some rectal pressure. Objective Vital Signs Date Time Temp Pulse Resp B/P (MAP) Pulse Ox O2 Delivery O2 Flow Rate FiO2 03/25/19 19:56 105 136/77 (96) 03/25/19 15:54 97.3 18 97.3 03/25/19 09:24 Room Air Assessment Heart Rate (FHR): 140 Variability: Moderate Accelerations: Positive Decelerations: None Heart Rate Tracing: Category I Tocometer Contractions: Yes Frequency: regular, every 2-5 min. Sterile Vaginal Examination Dilation: 9 cm (anterior lip) Effacement (%): 100% Station: +1 Postion/Presentation: Cephalic presentation Assessment and Plan Status: Reassuring Group B Streptococcus: Negative Anticipate: Vaginal Delivery REBECCA HOBSON CNM Mar 25, 2019 20:58
[2019-03-26] VITALS (8 sets, daily range): BP systolic 127–154; BP diastolic 73–84
[2019-03-26 00:08] LABS: CORD GAS ABE A -13.3; CORD GAS ABE V -9.2; CORD GAS HCO3 A 17.5 MEQ/L; CORD GAS O2 SAT V 44.3 %; CORD GAS PCO2 A 59.5 mmHg; CORD GAS PCO2 V 48.9 mmHg; CORD GAS PH A 7.086 UNITS; CORD GAS PH V 7.207 UNITS; CORD GAS PO2 A 18.5 mmHg; CORD GAS PO2 V 21.1 mmHg; CORD GAS SBC A 13.1 MEQ/L; CORD GAS TCO2 A 19.3 MEQ/L; CORD GAS TCO2 V 20.5 MEQ/L
[2019-03-26] MEDS ORDERED: OXYTOCIN DRIP 30 UNITS in IV 1 EA IV SCH (01:24)
[2019-03-26] MEDS ORDERED: IBUPROFEN 600 MG TAB PO PRN (01:30)
[2019-03-26] MEDS ORDERED: MEASLES,MUMPS,RUBELLA VACCINE INJ (MMR-II) (90707) SC SCH (01:30)
[2019-03-26] MEDS ORDERED: DOCUSATE SODIUM 100 MG CAP PO PRN (01:30)
[2019-03-26] MEDS ORDERED: ACETAMINOPHEN 500 MG TAB PO PRN (01:30)
[2019-03-26] MEDS ORDERED: METHYLERGONOVINE MALEATE 0.2 MG TAB PO PRN (01:30)
[2019-03-26] MEDS ORDERED: ANUSOL HC CREAM 30GM TOP PRN (01:30)
[2019-03-26] MEDS ORDERED: LIDOCAINE 1% MDV 20ML VIAL INFIL ONE (01:30)
[2019-03-26] MEDS ORDERED: RHOGAM 300 MCG (1500 IU) INJ (J2790) IM SCH (01:30)
[2019-03-26] MEDS ORDERED: ACETAMINOPHEN TAB 650MG DOSE (2X325MG) PO PRN (01:30)
[2019-03-26] MEDS ORDERED: DIBUCAINE 1% OINTMENT 30GM TOP PRN (01:30)
[2019-03-26] MEDS: IBUPROFEN 800 MG TAB PO PRN ×2 (01:45→17:32)
--- NOTE | 2019-03-26 02:10 | DNPDOC ---
[facility] Delivery Note Delivery Note DATE OF DELIVERY: 03/25/19 at 2346 PREDELIVERY DIAGNOSIS: 36-2/7 weeks' gestation and labor. POST DELIVERY DIAGNOSIS: Delivered. PROCEDURE: Spontaneous vaginal delivery. Provider: Rebecca Kate CNM, WHNP ANESTHESIA: epidural. ESTIMATED BLOOD LOSS: 400 mL. FINDINGS: 9 pounds 13 ounces; 4450 grams; male , Score 3/7, rupture, cervical incompetence with cerclage placement at 23 weeks, 2 minute shoulder dystocia, macrosomia and left fractured clavicle. DELIVERY SUMMARY: Patient is a 28-year-old female who is now a who presented to L&D with complaints of leaking of fluid. She was found to be spontaneously ruptured and her cerclage was removed after she was found to be spontaneously ruptured. The patient progressed to fully dilated at 2205 and started pushing at 2210. The patient pushed and delivered the head in the OA position. The classic "turtle sign" was noted and it was assessed to be a shoulder dystocia. At that time extra hands were called into the room to help, Dr. Reid and Dr. Pantoja were notified to help assist, and Dr. Castillo from neonatology was notified. The patient was repositioned and Tomasz performed with out success. A second attempt was attempted after extra hands were in the room and the patient was repositioned, Tomasz and suprapubic pressure was applied twice and on the second attempt the anterior shoulder delivered with downward traction. The posterior shoulder delivered with upward traction and the corpus delivered slowly. The baby delivered in the LOT position. The baby was placed on the maternal abdomen and the cord was clamped x2 and cut. The baby was taken over to the warming table and attended to by the nursing staff. Cord gasse s were obtained. The baby was taken over to the NICU per recommendation of the doll wigs hackler for further evaluation and further transitioning. The placenta delivered after IV Pitocin was stated at 125 cc/hr at 0020. Uterine hemostasis was achieved via rapid infusion of IV Pitocin and fundal massage. The perineum, cervix, and vagina were inspected and found to have a 2nd degree perineal laceration that was repaired with a 3.[address]-1. Mom is in stable condition. The baby is in stable condition in the NICU and was found to have a left clavicle fracture. They plan on naming him Brent. All counts of instruments and sponges are correct. Item Value Date Time Cord Arterial Blood pH 7.086 UNITS 03/25/192345 Cord Arterial Blood PCO2 59.5 mmHg 03/25/192345 Cord Arterial Blood PO2 18.5 mmHg 03/25/192345 Cord Arterial Blood HCO3 17.5 MEQ/L 03/25/192345 Cord Arterial Blood Total CO2 19.3 MEQ/L 03/25/192345 Cord Arterial Blood Base Excess -13.3 03/25/192345 Cord Arterial Base Excess (Standard 13.1 MEQ/L 03/25/192345 Cord Arterial Bld Oxygen Saturation 27.0 % 03/25/192345 Item Value Date Time Cord Venous Blood pH 7.207 UNITS 03/25/192345 Cord Venous Blood PCO2 48.9 mmHg 03/25/192345 Cord Venous Blood PO2 21.1 mmHg 03/25/192345 Cord Venous Blood HCO3 19.0 MEQ/L 03/25/192345 Cord Venous Blood Total CO2 20.5 MEQ/L 03/25/192345 Cord Venous Base Excess (Actual) -9.2 03/25/192345 Cord Venous Base Excess (Standard) 16.0 MEQ/L 03/25/192345 Cord Venous Blood Oxygen Saturation 44.3 % 03/25/192345 REBECCA KATE CNM Mar 26, 2019 02:10
[2019-03-26] MEDS ORDERED: ADACEL/BOOSTRIX VACCINE (DIPHTH/PERTUSS/ACELL/TETANUS)0.5ML SYR (90715) IM ONE (09:00)
[2019-03-26] MEDS ORDERED: PRENATAL VITAMINS CHEWABLE TABLET PO SCH (09:00)
[2019-03-27 06:11] VITALS: BP 122/63
== END 2019-03-27 10:55 | disposition home or self-care (01) | DRG 805 ==
LOC: M LDO 23:51 → M LDI 03-25 00:27 → M OBS 03-26 02:29
PROVIDERS: ADMIT Specialist; ATTEND Advanced Practice Midwife
PROC: 10E0XZZ Delivery of Products of Conception, External Approach (ICD-10-PCS; principal; 2019-03-25)
PROC: 0KQM0ZZ Repair Perineum Muscle, Open Approach (ICD-10-PCS; 2019-03-25)
DX: O42.013 Preterm premature rupture of membranes, onset of labor within 24 hours of rupture, third trimester (principal); Z37.0 Single live birth; O34.33 Maternal care for cervical incompetence, third trimester; Z3A.36 36 weeks gestation of pregnancy; O66.0 Obstructed labor due to shoulder dystocia; O70.1 Second degree perineal laceration during delivery

== ENCOUNTER → 2019-08-20 | Outpatient (REF) | payer OTHER ==
[~2019-08-20] MED LIST changes: -METF-791; +METF-838
== END ==
LOC: M LAB REF 17:46
PROVIDERS: ATTEND Dermatology
DX: D22.21 Melanocytic nevi of right ear and external auricular canal (principal); D48.9 Neoplasm of uncertain behavior, unspecified
CPT/HCPCS: 11102; 88305; G0463

== ENCOUNTER → 2020-10-05 | Outpatient (CLI) | payer OTHER ==
[~2020-10-05] MED LIST changes: +PROG1CAP9 PO
== END ==
LOC: M LABSMTC 10:53
PROVIDERS: ATTEND Anesthesiology
DX: Z01.812 Encounter for preprocedural laboratory examination (principal)

== ENCOUNTER 2020-10-09 07:17 | Day surgery (SDC) | payer OTHER ==
[~2020-10-09] VITALS: Ht 176.5 cm; Wt 99.3 kg
[~2020-10-09 07:17] MED LIST changes: +LR 1,000 ML IV ONE
[2020-10-09] MEDS ORDERED: MIDAZOLAM INJ 2MG/2ML VIAL (J2250 PER 1MG) As Ordered ONE (07:59)
[2020-10-09] MEDS ORDERED: propofoL 200 MG/20 ML VIAL As Ordered ONE (08:00)
[2020-10-09] MEDS ORDERED: fentaNYL 100 MCG/2 ML INJECTION (J3010) As Ordered ONE (08:00)
[2020-10-09] MEDS ORDERED: LIDOCAINE 2% 100MG/5ML SDV (FOR ANES.) As Ordered ONE (08:00)
[2020-10-09 08:01] LABS: HEMATOCRIT 37.6 % (36.0-47.0); HEMOGLOBIN 12.5 g/dl (12.0-15.5); MEAN CORPUSCULAR HGB CONC 33.2 g/dl (32.0-36.5); MEAN CORPUSCULAR VOLUME 90.4 fl (80.0-96.0); PLATELET COUNT, AUTOMATED 281 10^3/uL (150-450); RED BLOOD COUNT 4.16 10^6/uL (4.00-5.40); WHITE BLOOD COUNT 8.8 10^3/uL (4.0-10.0)
[2020-10-09] MEDS ORDERED: CHLOROPROCAINE PRES. FREE 2% 20ML VIAL As Ordered ONE ×2 (08:13→08:26)
[2020-10-09] MEDS ORDERED: CHLOROPROCAINE PRES. FREE 3% 20ML VIAL As Ordered ONE (08:25)
--- NOTE | 2020-10-09 08:30 | ROOPDOC ---
[facility] Report Of Operation Report of Operation DATE OF PROCEDURE: 10/09/20 PREPROCEDURE DIAGNOSES: 13 weeks gestation, cervical incompetence. POSTPROCEDURE DIAGNOSES: Same. PROCEDURE PERFORMED: Amos cervical cerclage. SURGEON: Kaye Borrero MD ANESTHESIA: Spinal. ESTIMATED BLOOD LOSS: Approximately 10 mL. COMPLICATIONS: none. FINDINGS: 13-week size uterus with heart rate documented prior to procedure by ultrasound. Grossly normal-appearing cervix SPECIMENS REMOVED: None DESCRIPTION OF PROCEDURE: The patient was taken to the operating room where spinal anesthesia was induced. She was prepped and draped in a sterile fashion in the dorsal lithotomy position. A speculum was placed in the vagina. The anterior lip of the cervix was grasped with a ring forceps. #0 Ethibond suture was used to stitch the cervix starting at the 12 o'clock position. The suture entered the cervix at the level of the internal os. The suture was placed in a purse-string fashion, counterclockwise direction. The suture was tied at the 12 o'clock position. The tail was left long for identification. Care was taken not to tie the suture too tight. Good hemostasis was noted. All instruments were removed. Sponge and needle and instrument counts were correct.. KAYE BORRERO MD Oct 09, 2020 08:30
[2020-10-09] MEDS ORDERED: LIDOCAINE 1% SDV 30ML VIAL As Ordered ONE (09:15)
[2020-10-09] MEDS ORDERED: fentaNYL 100 MCG/2 ML INJECTION (J3010) IV PRN (10:10)
[2020-10-09] MEDS ORDERED: ONDANSETRON 4MG/2ML VIAL IV PRN (10:10)
[2020-10-09] MEDS ORDERED: LR 1,000 ML IV SCH (10:10)
[2020-10-09] MEDS ORDERED: ACETAMINOPHEN 500 MG TAB PO ONE (10:15)
[2020-10-09] MEDS ORDERED: ACETAMINOPHEN TAB 650MG DOSE (2X325MG) PO PRN (11:30)
[2020-10-09 12:17] VITALS: BP 126/81
== END 2020-10-09 12:23 | disposition home or self-care (01) ==
LOC: M SDC 07:17
PROVIDERS: ATTEND Specialist
DX: O34.31 Maternal care for cervical incompetence, first trimester (principal); Z3A.13 13 weeks gestation of pregnancy; Z88.5 Allergy status to narcotic agent; Z88.1 Allergy status to other antibiotic agents
CPT/HCPCS: 36415; 57700; 85027; J2400

== ENCOUNTER → 2020-10-21 | Outpatient (CLI) | payer OTHER ==
[~2020-10-21] MED LIST changes: -LR 1,000 ML IV ONE
[2020-10-21 16:56] LABS: HEMATOCRIT 36.5 % (36.0-47.0); MEAN CORPUSCULAR HGB CONC 32.9 g/dl (32.0-36.5); MEAN CORPUSCULAR VOLUME 91.3 fl (80.0-96.0); PLATELET COUNT, AUTOMATED 272 10^3/uL (150-450); WHITE BLOOD COUNT 9.6 10^3/uL (4.0-10.0)
[2020-10-21 18:03] LABS: HEPATITIS C VIRUS ABY INDEX < 0.0 INDEX (<0.8); HIV 1&2 SCREEN CENTAUR NEGATIVE (NEGATIVE)
[2020-10-21 18:08] LABS: HEMOGLOBIN A1c 5.1 %
== END ==
LOC: M PLALAB 13:59
PROVIDERS: ATTEND Specialist
DX: Z34.81 Encounter for supervision of other normal pregnancy, first trimester (principal); Z3A.00 Weeks of gestation of pregnancy not specified
CPT/HCPCS: 36415; 83036; 85027; 86762; 86780; 86803; 86850; 86900; 86901; 87340; 87389; G0463

== ENCOUNTER → 2020-11-03 | Outpatient (CLI) | payer OTHER | LOC: M PLALAB 15:15 | PROVIDERS: ATTEND Specialist | DX: Z34.82 Encounter for supervision of other normal pregnancy, second trimester (principal); Z3A.00 Weeks of gestation of pregnancy not specified ==

== ENCOUNTER → 2020-11-20 | Outpatient (CLI) | payer OTHER ==
--- NOTE | 2020-11-20 12:48 | REP ---
INDICATION: ANATOMY. COMPARISON: None. TECHNIQUE: Transabdominal obstetric sonography. FINDINGS: Scanning through the gravid uterus demonstrates a viable single intrauterine gestation in variable lie. motion is observed and heart rate is recorded at 152 beats per minute. A posterior placenta is seen, grade 0, without evidence of placenta previa. Closed cervical length is measured at 3.5 cm transabdominally. No extrauterine abnormality is observed. Amniotic fluid is subjectively normal. No anomaly is seen. The following anatomic structures are identified and felt to be sonographically unremarkable: cranium, choroid plexus, cavum, cerebellum and posterior fossa, face and profile, lungs, four-chamber heart with left and right ventricular outflow tract views, diaphragm, left-sided stomach, abdominal wall cord insertion, three-vessel umbilical cord, kidneys and bladder, and upper and lower extremities. spine is less than optimally seen due to position. There is an echogenic focus in the left ventricle. Biometry chart: BPD 4.3 cm, 18 weeks 6 days Head circumference 16.6 cm, 19 weeks 2 days Abdominal circumference 13.1 cm, 18 weeks 4 days Femur length 2.9 cm, 18 weeks 6 days Humeral length 2.8 cm, 18 weeks 6 days HC AC ratio normal 1.27 Cephalic index normal 0.70 Estimated weight 257 g, 0 lb 9 oz, 41st percentile for 18 weeks 6 days IMPRESSION: Viable single intrauterine gestation at 18 weeks 6 days by today's composite sonographic criteria. CARLOS by today's sonography April 17, 2021. No complication identified. Expected gestational age estimate based on known CARLOS of April 17, 2021 is also 18 weeks 6 days. spine is less than optimally visualized due to position. <Electronically signed by Hair Yanez > 11/20/20 [id number]
== END ==
LOC: M WHC 10:33
PROVIDERS: ATTEND Specialist
DX: Z34.82 Encounter for supervision of other normal pregnancy, second trimester (principal)